=== PATIENT | female | born 1980 | race African-American/Black ===

== ENCOUNTER 2018-08-03 10:54 | Inpatient (IN) | payer OTHER ==
[~2018-08-03] VITALS: Ht 165.1 cm; Wt 123.0 kg
[2018-08-03 13:59] VITALS: Ht 165.1 cm; Wt 123.0 kg
[2018-08-03] MEDS ORDERED: CARV12.579 PO (13:59)
[2018-08-03] MEDS ORDERED: CETI5SOL PO (13:59)
[2018-08-03] MEDS ORDERED: LISI-313 PO (13:59)
[2018-08-03] MEDS ORDERED: UDATA PO (13:59)
[2018-08-03] MEDS ORDERED: CITA20TA11 PO (13:59)
[2018-08-03] MEDS ORDERED: METF500T24 PO (13:59)
[2018-08-03] MEDS ORDERED: INSU100C SQ (13:59)
[2018-08-03] MEDS ORDERED: GLIM2TAB47 PO (13:59)
[2018-08-03] MEDS ORDERED: ATOR10TA65 PO (13:59)
[2018-08-03] MEDS ORDERED: NACL 0.9% 3 ML SYG IV SCH ×2 (15:00)
[2018-08-03] MEDS ORDERED: ONDANSETRON 4 MG INJ IV PRN (15:00)
[2018-08-03] MEDS ORDERED: morphine 2 MG INJ IV PRN (15:00)
[2018-08-03 15:09] VITALS: BP 131/70; PULSE 103; RESP 17
[2018-08-03] MEDS: DEXTROSE 5%-0.45% NACL 1,000 ML IV SCH (15:10)
--- NOTE | 2018-08-03 15:59 | QN ---
Documentation Comment seen and examined PUSHPA GUNTER MD Aug 03, 2018 15:59
[2018-08-03] MEDS ORDERED: DEXTROSE 50% 50 ML SYRINGE IV PRN ×2 (16:30)
[2018-08-03] MEDS ORDERED: hydrOXYzine HCL 25 MG TAB PO PRN (16:30)
[2018-08-03] MEDS ORDERED: GLUCAGON 1 MG INJ IM PRN (16:30)
[2018-08-03] MEDS ORDERED: GLUCOSE GEL 15 GRAM TUBE PO PRN ×2 (16:30)
[2018-08-03] MEDS ORDERED: GLUCOSE GEL 15 GRAM TUBE BUCCAL PRN (16:30)
[2018-08-03] MEDS ORDERED: INSULIN ASPART [NOVOLOG] 3 ML PEN SC SCH (18:00)
--- NOTE | 2018-08-03 18:05 | HP ---
DATE OF ADMISSION: 08/03/2018 REASON FOR ADMISSION: Abdominal pain. HISTORY OF PRESENT ILLNESS: A 38-year-old female with a past medical history of diabetes, hypertensi on, obesity who presented to [facility] on 08/03 secondary to left-sided abdominal pain. Ac cording to the patient, she had been eating some Maltese food. She was having 4 to 5 episodes of elvis rrhea for the last few weeks. Yesterday, she all of a sudden last night noted left upper quadrant pa in which is burning in nature. She came to the emergency room for evaluation. She has some dry heav es, but no vomiting. Denied any fevers and chills. Denied any hematemesis, any melena, any bright r ed blood per rectum. On arrival to ED at the [facility], the patient was afebrile, pulse wa s 109, respirations 18, blood pressure 125/63, saturating 97%. White count was 7.6. LFTs within nor mal limits. Lipase was 37. HCG was negative. UA shows greater than [address] of the abdome n and pelvis was done that showed hepatomegaly with fatty infiltration and mild peripancreatic hazine ss. This can be seen with pancreatitis. EKG showed sinus tachycardia. The patient was given IV flu ids and was transferred due to insurance reasons. PAST MEDICAL HISTORY: 1. Diabetes. 2. Hypertension. 3. Obesity. 4. History of recently treated scabies. ALLERGIES: IBUPROFEN. HOME MEDICATIONS: Taking at home: 1. Trulicity. 2. Cetirizine 10 mg p.o. daily. 3. Atorvastatin 10. 4. Coreg 12.5 b.i.d. 5. Lisinopril. 6. Celexa. 7. Atarax. 8. Glimepiride. 9. Lispro. 10. Metformin 500. SOCIAL HISTORY: Denies any history of smoking, alcohol or any drug use. Works in a retail. FAMILY HISTORY: Noncontributory. REVIEW OF SYSTEMS: The patient complained of generalized itching; however, does not have any lesions . Complains of left upper quadrant pain. Denies she has some dry heaves. Denies any vomiting. She has been having some diarrhea. Denies any hematemesis, any melena, any blood per rectum. Denies an y focal neurological deficit. PHYSICAL EXAMINATION: VITAL SIGNS: Currently, temperature 98.1, pulse 103, respirations 17, blood pressure 131/70. GENERAL: The patient is awake, alert, oriented, morbidly obese. HEENT: Pupils equal, round, react to light. No scleral icterus. NECK: Supple, no JVD. HEART: Regular rate and rhythm, normal S1, S2 heard. No murmur, rub or gallop. LUNGS: Clear to auscultate bilaterally. ABDOMEN: Soft. Bowel sounds present; however, has tenderness present in the left upper quadrant. EXTREMITIES: No clubbing, cyanosis, or edema. DIAGNOSTIC DATA: From outside hospital showed LFTs are within normal limit. White count of 7.6. Li pase 37. Beta hCG was negative. UA showed greater than [address] of the abdomen and pelvis shows hepatomegaly with fatty infiltration, mild peripancreatic haziness that can be seen with pancre atitis. ASSESSMENT: This is a 38-year-old female presenting with: 1. Left upper quadrant pain could be secondary to pancreatitis evident on the CAT scan; however, lip ase is negative. LFTs are negative. The patient also has history of constipation. It could be ques tionable colitis given the history of diarrhea. 2. Diabetes. 3. Hypertension. 4. Obesity. 5. Hyperlipidemia. 6. History of scabies. PLAN: At this period of time, the patient is admitted to med/surg unit. The patient denies any hist ory of alcohol and no history of gallstones. We will keep the patient n.p.o., start on IV fluids, pa in control and medications for itching; and a GI consultation will be requested. We will also check for triglyceride level. Rest of the treatment will depend on the patient's hospitalization course. Dictated By: PUSHPA CONRAD/KRISTINE Conf#: [id number] DID#: [id number] CC: YOVANNY COLE MD;*End*
[2018-08-03 20:10] VITALS: BP 132/74; PULSE 105; RESP 18
[2018-08-03] MEDS: ATORVASTATIN 10 MG TAB PO SCH (20:19)
[2018-08-03] MEDS: DIPHENHYDRAMINE 50 MG INJ IV PRN (20:19)
[2018-08-03] MEDS: INSULIN ASPART [NOVOLOG] 3 ML PEN SC SCH (20:24)
[2018-08-04] MEDS: DEXTROSE 5%-0.45% NACL 1,000 ML IV SCH ×3 (00:52→15:23)
[2018-08-04] MEDS: INSULIN ASPART [NOVOLOG] 3 ML PEN SC SCH ×4 (01:00→13:35)
[2018-08-04] MEDS: DIPHENHYDRAMINE 50 MG INJ IV PRN ×4 (01:36→18:06)
[2018-08-04] MEDS: morphine SULFATE/PF (2 MG/2 ML) SYG IV PRN ×4 (01:49→18:06)
[2018-08-04] MEDS ORDERED: ACCU-CHEK XX SCH (02:00)
[2018-08-04 08:02] VITALS: BP 111/55; PULSE 90; RESP 18
[2018-08-04] MEDS: CITALOPRAM 20 MG TAB PO SCH (08:19)
[2018-08-04] MEDS: LISINOPRIL 5 MG TAB PO SCH (08:19)
--- NOTE | 2018-08-04 10:57 | CONS ---
Date/Time of Note Date/Time of Note DATE: 08/04/18 TIME: 10:52 Assessment/Plan Assessment/Plan Hospital Course 38 yo female with htn, obesity and diabetes presented with RUQ pain and dry heaving 1. Panpancreatic haziness -lipase wnl, pt recently started taking Trulicity which can be cause of mild pancreatitis 2. Intermittent diarrhea -currently no diarrhea -likely due to intermittent use of metformin 3. Fatty liver 4. Hepatomegaly 5. LUQ/mid abdominal pain which moves around stomach and is intermittent and bu rning -could be due to intermittent use of metformin 6. Burning pain in BLE and BUE intermittently -R/O Diabetic neuropathy 7. Diabetes mellitus uncontrolled -HgbA1C 10.1 8. Hypertension 9. Obesity 10. Mild triglycerdemia (151) Plan: Pt GI upset could be due to intermittent use of metformin and mild pancreatitis likely due to Trulicity (Januvia and HCTZ could also cause pancreatitis and pt i s unaware of the medications she takes). Pt needs education on diabetes medication. I educated patient on low fat, low carb lifestyle. I provided some education on metformin. Advised patient she should take daily, starting with 500 mg qd for 3-4 weeks until GI upset begins to resolve, then take add another 500mg to dose and again adjust slowly until GI upset subsides until metformin dose goal reached. Advised patient she should take metformin with food. Pt believes she should only take metformin when her blood sugars are high (and experiences abd pain, nausea and diarrhea when she does this). Her burning pain could be due to diabetic neuropathy since patient's diabetes is not controlled well. We will monitor patient, her LFTs, amylase and lipase. Order stool cx to r/o infectious etiology. Recommend endocrinology consult and diabetes education. It is okay to start patient on clear liquid diet and advance as tolerated. Pt examined and plan of care discussed with Dr. Ibarra. Result Diagram: 08/04/1828 08/04/18527 Results 24hrs Laboratory Tests Test 08/03/18 17:38 08/03/18 20:23 08/04/18 01:47 08/04/18 05:28 Bedside Glucose 161 149 205 207 White Blood Count 9.3 Red Blood Count 4.65 Hemoglobin 12.4 Hematocrit 40.0 Mean Corpuscular 86.0 Volume Mean Corpuscular 26.7 L Hemoglobin Mean Corpuscular 31.0 L Hemoglobin Concent Red Cell 12.5 Distribution Width Platelet Count 282 Mean Platelet Volume 11.8 H Immature 0.200 Granulocytes % Neutrophils % 61.0 Lymphocytes % 26.2 Monocytes % 7.7 Eosinophils % 4.7 Basophils % 0.2 Nucleated Red Blood 0.0 Cells % Immature 0.020 Granulocytes # Neutrophils # 5.7 Lymphocytes # 2.4 Monocytes # 0.7 Eosinophils # 0.4 Basophils # 0.0 Nucleated Red Blood 0.0 Cells # Sodium Level 142 Potassium Level 3.8 Chloride Level 103 Carbon Dioxide Level 27 Anion Gap 12 Blood Urea Nitrogen 6 L Creatinine 0.57 Est Glomerular > 60 Filtrat Rate mL/min Glucose Level 217 Hemoglobin A1c 10.1 H Calcium Level 8.6 Phosphorus Level 3.3 Magnesium Level 1.9 Total Bilirubin 0.4 Direct Bilirubin 0.00 Indirect Bilirubin 0.4 Aspartate Amino 14 L Transf (AST/SGOT) Alanine 21 Aminotransferase (AL T/SGPT) Alkaline Phosphatase 88 Total Protein 6.3 Albumin 3.5 Globulin 2.80 Albumin/Globulin 1.25 Ratio Triglycerides Level 151 H Cholesterol Level 156 LDL Cholesterol, 91 Calculated HDL Cholesterol 35 Cholesterol/HDL 4.4 Ratio Lipase 58 Test 08/04/18 09:36 Bedside Glucose 209 Consultation Date/Type/Reason Admit Date/Time Aug 03, 2018 at 13:15 Hx of Present Illness 38 yo female with pmh of diabetes, hypertension, obesity and recently treated scabies, presented to [facility] for left sided abdominal pain. Pt was eating Irish food when she began having LUQ and mid abdominal burning pain which was radiating. She has had this pain in past just not as bad but states the pain moves and is burning in nature. She c/o nausea with dry heaving but no vomiting. Pt takes trulicity and metformin. She has been prescribed metformin for a while now but states she takes it intermittently because it is a large pill and feels she only needs to take it when her blood sugar is high. I explained that metformin could cause GI disturbances including diarrhea, abd pain and nausea and pt states that metformin may be the cause. Denies GI bleeding, melena, hematochezia, hematemesis. She has been having intermittent diarrhea over last few weeks but currently BM are normal. Pt states her pain moves around, currently on rt foot and bottom of foot, it feels like numbness and tingling at times, burning at times. She gets it in her hands as well. She states she has had back pain in past but not currently. At presentation to ER she had a UA which showed glucose greater than 1000 and trace amonts of ASHVIN Esterase. Serum glucose 300. Blood sugars in [facility] have been high 100s and low 200s. Her lipase was 37 (nl) and today is 58, WBC wnl, LFTs wnl. HgbA1C is 10.1.Triglycerides 151. EKG showed sinus tach. CT of abd/pelvis done at [facility] 08/03 shows hepatomegaly with fatty infiltration and mild peripancreatic haziness adjacent ot the tail which could be from pancreatitis. She denies CP, SOB, chills, fevers, dysuria Past Medical History Medications Current Medications Dextrose/Sodium Chloride 1,000 ml @ 100 mls/hr Q10H IV Last administered on 08/03/18at 15:10; Admin Dose 100 MLS/HR; Start 08/03/18 at 14:52 Ondansetron HCl (Zofran Inj) 4 mg Q6H PRN IV NAUSEA AND/OR VOMITING; Start 08/03/18 at 15:00 IV Flush (NS 3 ml) 3 ml PER PROTOCOL IV ; Start 08/03/18 at 15:00 Atorvastatin Calcium (Lipitor) 10 mg QHS PO Last administered on 08/03/18at 20:19; Admin Dose 10 MG; Start 08/03/18 at 21:00 Carvedilol (Coreg) 12.5 mg BID PO Last administered on 08/04/18at 08:19; Admin Dose 12.5 MG; Start 08/03/18 at 21:00 Citalopram Hydrobromide (Celexa) 20 mg DAILY PO Last administered on 08/04/18at 08:19; Admin Dose 20 MG; Start 08/04/18 at 09:00 Hydroxyzine HCl (Atarax) 25 mg Q6H PRN PO ITCHING Last administered on 08/03/18at 17:45; Admin Dose 25 MG; Start 08/03/18 at 16:30 Lisinopril (Zestril) 5 mg DAILY PO Last administered on 08/04/18at 08:19; Admin Dose 5 MG; Start 08/04/18 at 09:00 Miscellaneous Information 1 ea NOTE XX ; Start 08/03/18 at 16:30 Glucose (Glutose) 15 gm Q15M PRN PO DECREASED GLUCOSE; Start 08/03/18 at 16:30 Glucose (Glutose) 22.5 gm Q15M PRN PO DECREASED GLUCOSE; Start 08/03/18 at 16:30 Dextrose (D50w Syringe) 25 ml Q15M PRN IV DECREASED GLUCOSE; Start 08/03/18 at 16:30 Dextrose (D50w Syringe) 50 ml Q15M PRN IV DECREASED GLUCOSE; Start 08/03/18 at 16:30 Glucagon (Glucagen) 1 mg Q15M PRN IM DECREASED GLUCOSE; Start 08/03/18 at 16:30 Glucose (Glutose) 15 gm Q15M PRN BUCCAL DECREASED GLUCOSE; Start 08/03/18 at 16:30 Insulin Aspart (Novolog Insulin Pen) NOVOLOG *MILD* ALGORI... Q4 SC Last administered on 08/04/18at 09:56; Admin Dose 2 UNIT; Start 08/03/18 at 22:00 Diphenhydramine HCl (Benadryl) 25 mg Q4H PRN IV itching Last administered on 08/04/18at 09:51; Admin Dose 25 MG; Start 08/03/18 at 20:30 Morphine Sulfate (morphine SULFATE (PF)) 2 mg Q4H PRN IV SEVERE PAIN LEVEL 7-10 Last administered on 08/04/18at 09:20; Admin Dose 2 MG; Start 08/04/18 at 01:40 Allergies: Coded Allergies: ibuprofen (Verified Allergy, Severe, 08/03/18) abdominal pain, itching Social History Smoking Status: Never smoker Exam/Review of Systems Vital Signs Vitals Vital Signs Date Temp Pulse Resp B/P (MAP) Pulse Ox O2 O2 Flow FiO2 Time Delivery Rate 08/04/18 98.6 90 18 111/55 96 08:02 (73) 08/03/18 Room Air 15:09 Intake and Output 08/03/18 08/03/18 08/04/18 1515:00 23:00 07:00 IntakeIntake Total 200 ml 600 ml BalanceBalance 200 ml 600 ml Exam Constitutional: alert, oriented Psych: no complaints Head: normocephalic Eyes: nl sclera, PERRL ENMT: mucosa pink and moist Respiratory: clear to auscultation Cardiovascular: regular rate and rhythm Gastrointestinal: soft, tender (mild in mid abdomen), other (obese, pos bowel sounds) Musculoskeletal: nl gait and stance Extremities: normal pulses Neurological: nl mental status, nl speech Medications Medications Current Medications Dextrose/Sodium Chloride 1,000 ml @ 100 mls/hr Q10H IV Last administered on 08/03/18at 15:10; Admin Dose 100 MLS/HR; Start 08/03/18 at 14:52 Ondansetron HCl (Zofran Inj) 4 mg Q6H PRN IV NAUSEA AND/OR VOMITING; Start 08/03/18 at 15:00 IV Flush (NS 3 ml) 3 ml PER PROTOCOL IV ; Start 08/03/18 at 15:00 Atorvastatin Calcium (Lipitor) 10 mg QHS PO Last administered on 08/03/18at 20:1 9; Admin Dose 10 MG; Start 08/03/18 at 21:00 Carvedilol (Coreg) 12.5 mg BID PO Last administered on 08/04/18at 08:19; Admin Dose 12.5 MG; Start 08/03/18 at 21:00 Citalopram Hydrobromide (Celexa) 20 mg DAILY PO Last administered on 08/04/18at 08:19; Admin Dose 20 MG; Start 08/04/18 at 09:00 Hydroxyzine HCl (Atarax) 25 mg Q6H PRN PO ITCHING Last administered on 08/03/18at 17:45; Admin Dose 25 MG; Start 08/03/18 at 16:30 Lisinopril (Zestril) 5 mg DAILY PO Last administered on 08/04/18at 08:19; Admin Dose 5 MG; Start 08/04/18 at 09:00 Miscellaneous Information 1 ea NOTE XX ; Start 08/03/18 at 16:30 Glucose (Glutose) 15 gm Q15M PRN PO DECREASED GLUCOSE; Start 08/03/18 at 16:30 Glucose (Glutose) 22.5 gm Q15M PRN PO DECREASED GLUCOSE; Start 08/03/18 at 16:30 Dextrose (D50w Syringe) 25 ml Q15M PRN IV DECREASED GLUCOSE; Start 08/03/18 at 16:30 Dextrose (D50w Syringe) 50 ml Q15M PRN IV DECREASED GLUCOSE; Start 08/03/18 at 16:30 Glucagon (Glucagen) 1 mg Q15M PRN IM DECREASED GLUCOSE; Start 08/03/18 at 16:30 Glucose (Glutose) 15 gm Q15M PRN BUCCAL DECREASED GLUCOSE; Start 08/03/18 at 16:30 Insulin Aspart (Novolog Insulin Pen) NOVOLOG *MILD* ALGORI... Q4 SC Last administered on 08/04/18 09:56; Admin Dose 2 UNIT; Start 08/03/18 at 22:00 Diphenhydramine HCl (Benadryl) 25 mg Q4H PRN IV itching Last administered on 08/04/18at 09:51; Admin Dose 25 MG; Start 08/03/18 at 20:30 Morphine Sulfate (morphine SULFATE (PF)) 2 mg Q4H PRN IV SEVERE PAIN LEVEL 7-10 Last administered on 08/04/18 09:20; Admin Dose 2 MG; Start 08/04/18 at 01:40 KAT ARNOLD Aug 04, 2018 10:57
--- NOTE | 2018-08-04 13:06 | PN ---
Date/Time of Note Date/Time of Note DATE: 08/04/18 TIME: 13:04 Assessment/Plan VTE Prophylaxis Risk score (from Ns)>0 risk: 1 [place] [facility] [place] contraindicated: low risk/ambulating Pharmacological prophylaxis: NA/contraindicated Pharm contraindication: low risk/ambulating Lines/Catheters [facility]from [facility] Peripheral IV Urinary Cath still in place: No Assessment/Plan Hospital Course 1. Left upper quadrant pain could be secondary to pancreatitis evident on the CAT scan; however, lipase is negative. LFTs are negative. The patient also has history of constipation. It could be questionable colitis given the history of diarrhea. 2. Diabetes. 3. Hypertension. 4. Obesity. 5. Hyperlipidemia. 6. History of scabies. Assessment/Plan - med/surg unit. - clear liquid -c.w decreased IV fluids, -c/w pain control and medications for itching; and a -GI consultation is appreciated -triglyceride level. -DVT prophylaxis GI prophylaxis start protonix Result Diagram: 08/04/1852708/04/18527 Results 24hrs Laboratory Tests Test 08/03/18 17:38 08/03/18 20:23 08/04/18 01:47 08/04/18 05:28 Bedside Glucose 161 149 205 207 White Blood Count 9.3 Red Blood Count 4.65 Hemoglobin 12.4 Hematocrit 40.0 Mean Corpuscular 86.0 Volume Mean Corpuscular 26.7 L Hemoglobin Mean Corpuscular 31.0 L Hemoglobin Concent Red Cell 12.5 Distribution Width Platelet Count 282 Mean Platelet Volume 11.8 H Immature 0.200 Granulocytes % Neutrophils % 61.0 Lymphocytes % 26.2 Monocytes % 7.7 Eosinophils % 4.7 Basophils % 0.2 Nucleated Red Blood 0.0 Cells % Immature 0.020 Granulocytes # Neutrophils # 5.7 Lymphocytes # 2.4 Monocytes # 0.7 Eosinophils # 0.4 Basophils # 0.0 Nucleated Red Blood 0.0 Cells # Sodium Level 142 Potassium Level 3.8 Chloride Level 103 Carbon Dioxide Level 27 Anion Gap 12 Blood Urea Nitrogen 6 L Creatinine 0.57 Est Glomerular > 60 Filtrat Rate mL/min Glucose Level 217 Hemoglobin A1c 10.1 H Calcium Level 8.6 Phosphorus Level 3.3 Magnesium Level 1.9 Total Bilirubin 0.4 Direct Bilirubin 0.00 Indirect Bilirubin 0.4 Aspartate Amino 14 L Transf (AST/SGOT) Alanine 21 Aminotransferase (AL T/SGPT) Alkaline Phosphatase 88 Total Protein 6.3 Albumin 3.5 Globulin 2.80 Albumin/Globulin 1.25 Ratio Triglycerides Level 151 H Cholesterol Level 156 LDL Cholesterol, 91 Calculated HDL Cholesterol 35 Cholesterol/HDL 4.4 Ratio Lipase 58 Test 08/04/18 09:36 Bedside Glucose 209 Subjective 24 Hr Interval Summary Gastrointestinal: pain (decreased) Exam/Review of Systems Vital Signs Vitals Vital Signs Date Temp Pulse Resp B/P (MAP) Pulse Ox O2 O2 Flow FiO2 Time Delivery Rate 08/04/18 98.6 90 18 111/55 96 08:02 (73) 08/03/18 Room Air 15:09 Intake and Output 08/03/18 08/03/18 08/04/18 1515:00 23:00 07:00 IntakeIntake Total 200 ml 600 ml BalanceBalance 200 ml 600 ml Exam Constitutional: alert, oriented Cardiovascular: regular rate and rhythm Gastrointestinal: soft, rebound or guarding; No nl liver, spleen, No non-tender, No ascites, No bowel sounds, No distended, No firm, No hepatomegaly, No mass, No splenomegaly, No surgical scars, No tender, No other Medications Medications Current Medications Dextrose/Sodium Chloride 1,000 ml @ 100 mls/hr Q10H IV Last administered on 08/03/18at 15:10; Admin Dose 100 MLS/HR; Start 08/03/18 at 14:52 Ondansetron HCl (Zofran Inj) 4 mg Q6H PRN IV NAUSEA AND/OR VOMITING; Start 08/03/18 at 15:00 IV Flush (NS 3 ml) 3 ml PER PROTOCOL IV ; Start 08/03/18 at 15:00 Atorvastatin Calcium (Lipitor) 10 mg QHS PO Last administered on 08/03/18at 20:19; Admin Dose 10 MG; Start 08/03/18 at 21:00 Carvedilol (Coreg) 12.5 mg BID PO Last administered on 08/04/18at 08:19; Admin Dose 12.5 MG; Start 08/03/18 at 21:00 Citalopram Hydrobromide (Celexa) 20 mg DAILY PO Last administered on 08/04/18at 08:19; Admin Dose 20 MG; Start 08/04/18 at 09:00 Hydroxyzine HCl (Atarax) 25 mg Q6H PRN PO ITCHING Last administered on at 17:45; Admin Dose 25 MG; Start 08/03/18 at 16:30 Lisinopril (Zestril) 5 mg DAILY PO Last administered on 08/04/18at 08:19; Admin Dose 5 MG; Start 08/04/18 at 09:00 Miscellaneous Information 1 ea NOTE XX ; Start 08/03/18 at 16:30 Glucose (Glutose) 15 gm Q15M PRN PO DECREASED GLUCOSE; Start 08/03/18 at 16:30 Glucose (Glutose) 22.5 gm Q15M PRN PO DECREASED GLUCOSE; Start 08/03/18 at 16:30 Dextrose (D50w Syringe) 25 ml Q15M PRN IV DECREASED GLUCOSE; Start 08/03/18 at 16:30 Dextrose (D50w Syringe) 50 ml Q15M PRN IV DECREASED GLUCOSE; Start 08/03/18 at 16:30 Glucagon (Glucagen) 1 mg Q15M PRN IM DECREASED GLUCOSE; Start 08/03/18 at 16:30 Glucose (Glutose) 15 gm Q15M PRN BUCCAL DECREASED GLUCOSE; Start 08/03/18 at 16:30 Insulin Aspart (Novolog Insulin Pen) NOVOLOG *MILD* ALGORI... Q4 SC Last administered on 08/04/18at 09:56; Admin Dose 2 UNIT; Start 08/03/18 at 22:00 Diphenhydramine HCl (Benadryl) 25 mg Q4H PRN IV itching Last administered on 08/04/18at 09:51; Admin Dose 25 MG; Start 08/03/18 at 20:30 Morphine Sulfate (morphine SULFATE (PF)) 2 mg Q4H PRN IV SEVERE PAIN LEVEL 7-10 Last administered on 08/04/18 09:20; Admin Dose 2 MG; Start 08/04/18 at 01:40 KIMBERLY KING Aug 04, 2018 13:06
[2018-08-04 15:19] VITALS: BP 126/68; PULSE 89; RESP 17
[2018-08-04] MEDS: Insulin NOVOLOG SS MILD Algorithm (SS with meals and bedtime) SC SCH ×2 (17:50→21:06)
[2018-08-04] MEDS ORDERED: INSULIN ASPART [NOVOLOG] 3 ML PEN SC SCH (18:00)
[2018-08-04 19:12] VITALS: BP 131/79; PULSE 98; RESP 18
[2018-08-04] MEDS: ATORVASTATIN 10 MG TAB PO SCH (20:56)
[2018-08-05] MEDS: DIPHENHYDRAMINE 50 MG INJ IV PRN ×4 (00:05→13:04)
[2018-08-05] MEDS: morphine SULFATE/PF (2 MG/2 ML) SYG IV PRN ×4 (00:05→13:05)
[2018-08-05] MEDS ORDERED: ACCUCHECK AT 2AM (Patients on SS coverage) XX SCH (02:00)
[2018-08-05 02:29] VITALS: BP 114/58; PULSE 88; RESP 18
[2018-08-05] MEDS ORDERED: PANTOPRAZOLE 40 MG INJ IV SCH (06:00)
[2018-08-05 08:02] VITALS: BP 130/61; PULSE 98; RESP 19
[2018-08-05] MEDS: Insulin NOVOLOG SS MILD Algorithm (SS with meals and bedtime) SC SCH ×2 (08:28→13:07)
[2018-08-05] MEDS: CITALOPRAM 20 MG TAB PO SCH (08:30)
[2018-08-05] MEDS: LISINOPRIL 5 MG TAB PO SCH (08:30)
--- NOTE | 2018-08-05 13:34 | CONS ---
Date/Time of Note Date/Time of Note DATE: 08/05/18 TIME: 13:33 Assessment/Plan Assessment/Plan Assessment/Plan Hospital Course 38 yo female with htn, obesity and diabetes presented with RUQ pain and dry heaving 1. Panpancreatic haziness -lipase wnl, pt recently started taking Trulicity which can be cause of mild pancreatitis 2. Intermittent diarrhea -currently no diarrhea -likely due to intermittent use of metformin 3. Fatty liver 4. Hepatomegaly 5. LUQ/mid abdominal pain which moves around stomach and is intermittent and burning -could be due to intermittent use of metformin 6. Burning pain in BLE and BUE intermittently -R/O Diabetic neuropathy 7. Diabetes mellitus uncontrolled -HgbA1C 10.1 8. Hypertension 9. Obesity 10. Mild triglycerdemia (151) Plan Continue present care Weight reduction Patient is to bring all her diabetic medication PPI Result Diagram: 08/04/18 0528 08/04/18 0528 Results 24hrs Laboratory Tests Test 08/04/18 17:46 08/04/18 20:54 08/05/18 02:50 08/05/18 05:28 Bedside Glucose 185 253 H 198 Total Bilirubin 0.2 Direct Bilirubin 0.00 Indirect Bilirubin 0.2 Aspartate Amino 17 Transf (AST/SGOT) Alanine 21 Aminotransferase (AL T/SGPT) Alkaline Phosphatase 92 Total Protein 5.9 L Albumin 3.3 Amylase Level 46 Test 08/05/18 08:05 08/05/18 13:03 Bedside Glucose 242 H 207 Consultation Date/Type/Reason Admit Date/Time Aug 03, 2018 at 13:15 Initial Consult Date 24 HR Interval Summary Constitutional: improved Exam/Review of Systems Vital Signs Vitals Vital Signs Date Temp Pulse Resp B/P (MAP) Pulse Ox O2 O2 Flow FiO2 Time Delivery Rate 08/05/18 98.8 98 19 130/61 98 08:02 (84) 08/04/18 Room Air 15:19 Intake and Output 08/04/18 08/04/18 08/05/18 1515:00 23:00 07:00 IntakeIntake Total 1250 ml BalanceBalance 1250 ml Exam Constitutional: alert, oriented, well developed Psych: no complaints, nl mood/affect Head: normocephalic, atraumatic Eyes: nl conjunctiva, EOMI, nl lids, nl sclera, PERRL ENMT: nl external ears & nose, nl lips & teeth, nl nasal mucosa & septum Neck: supple, non-tender Respiratory: clear to auscultation, normal air movement Cardiovascular: regular rate and rhythm, nl pulses Gastrointestinal: soft, nl liver, spleen, non-tender Musculoskeletal: nl extremities to inspection, nl gait and stance Extremities: normal pulses Neurological: PERSONNEL PSYCHOLOGIST II-XII intact, nl mental status, nl speech, nl strength Skin: nl turgor; No rash or lesions Lymph: nl lymph nodes Medications Medications Current Medications Ondansetron HCl (Zofran Inj) 4 mg Q6H PRN IV NAUSEA AND/OR VOMITING; Start 08/03/18 at 15:00 IV Flush (NS 3 ml) 3 ml PER PROTOCOL IV ; Start 08/03/18 at 15:00 Atorvastatin Calcium (Lipitor) 10 mg QHS PO Last administered on 08/04/18at 20:56; Admin Dose 10 MG; Start 08/03/18 at 21:00 Carvedilol (Coreg) 12.5 mg BID PO Last administered on 08/05/18at 08:30; Admin Dose 12.5 MG; Start 08/03/18 at 21:00 Citalopram Hydrobromide (Celexa) 20 mg DAILY PO Last administered on 08/05/18at 08:30; Admin Dose 20 MG; Start 08/04/18 at 09:00 Hydroxyzine HCl (Atarax) 25 mg Q6H PRN PO ITCHING Last administered on 08/03/18at 17:45; Admin Dose 25 MG; Start 08/03/18 at 16:30 Lisinopril (Zestril) 5 mg DAILY PO Last administered on 08/05/18at 08:30; Admin Dose 5 MG; Start 08/04/18 at 09:00 Miscellaneous Information 1 ea NOTE XX ; Start 08/03/18 at 16:30 Glucose (Glutose) 15 gm Q15M PRN PO DECREASED GLUCOSE; Start 08/03/18 at 16:30 Glucose (Glutose) 22.5 gm Q15M PRN PO DECREASED GLUCOSE; Start 08/03/18 at 16:30 Dextrose (D50w Syringe) 25 ml Q15M PRN IV DECREASED GLUCOSE; Start 08/03/18 at 16:30 Dextrose (D50w Syringe) 50 ml Q15M PRN IV DECREASED GLUCOSE; Start 08/03/18 at 16:30 Glucagon (Glucagen) 1 mg Q15M PRN IM DECREASED GLUCOSE; Start 08/03/18 at 16:30 Glucose (Glutose) 15 gm Q15M PRN BUCCAL DECREASED GLUCOSE; Start 08/03/18 at 16:30 Diphenhydramine HCl (Benadryl) 25 mg Q4H PRN IV itching Last administered on 08/05/18 13:04; Admin Dose 25 MG; Start 08/03/18 at 20:30 Morphine Sulfate (morphine SULFATE (PF)) 2 mg Q4H PRN IV SEVERE PAIN LEVEL 7-10 Last administered on 08/05/18 13:05; Admin Dose 2 MG; Start 08/04/18 at 01:40 Pantoprazole (Protonix Iv) 40 mg DAILY@06 IV Last administered on 08/05/18 06:29; Admin Dose 40 MG; Start 08/05/18 at 06:00 Insulin Aspart (Novolog Insulin Pen) (Adult SC Insulin - Mild Algorithm)... WITH MEALS BEDTIME SC Last administered on 08/05/18 13:07; Admin Dose 2 UNIT; Start 08/04/18 at 18:00 Diagnostic Test (Pha) (Accu-Chek) 1 ea 02 XX Last administered on 08/05/18at 02:54; Admin Dose 1 EA; Start 08/05/18 at 02:00 DUSTIN GATES MD Aug 05, 2018 13:34
--- NOTE | 2018-08-05 16:10 | PDOCDIS ---
Discharge Instructions DIAGNOSIS Discharge Diagnosis abdominal pain CONDITION [id number] Patient Condition: [id number] Stable HOME CARE INSTRUCTIONS: [id number] Special Diet: [id number] carb controlled diet ACTIVITY: [id number] Activity Restrictions: [id number] Slowly Increase Activity Rest between Activity FOLLOW UP/APPOINTMENTS Follow-up Plan PCP 1 week, do not use trulicKIMBERLY Justin Aug 05, 2018 16:10
--- NOTE | 2018-08-05 16:11 | DS ---
Date/Time of Note Date/Time of Note DATE: 08/05/18 TIME: 16:10 Discharge Summary Admission/Discharge Info Admit Date/Time Aug 03, 2018 at 13:15 Discharge Date/Time Discharge Diagnosis abdominal pain Patient Condition: Stable Consults Dr Ibarra,GI Hospital Course A 38-year-old female with a past medical history of diabetes, hypertension, obesity who presented to [facility] on 08/03 secondary to left-sided abdominal pain. According to the patient, she had been eating some [place] food. She was having 4 to 5 episodes of diarrhea for the last few weeks. Yesterday, she all of a sudden last night noted left upper quadrant pain which is burning in nature. She came to the emergency room for evaluation. She has some dry heaves, but no vomiting. Denied any fevers and chills. Denied any hematemesis, any melena, any bright red blood per rectum. On arrival to ED at the [facility], the patient was afebrile, pulse was 109, respirations 18, blood pressure 125/63, saturating 97%. White count was 7.6. LFTs within normal limits. Lipase was 37. HCG was negative. UA shows greater than [address] of the abdomen and pelvis was done that showed hepatomegaly with fatty infiltration and mild peripancreatic haziness. This can be seen with pancreatitis. EKG showed sinus tachycardia. The patient was given IV fluids and was transferred due to insurance reasons. PAST MEDICAL HISTORY: 1. Diabetes. 2. Hypertension. 3. Obesity. 4. History of recently treated scabies. Ds:1. Left upper quadrant pain could be secondary to pancreatitis evident on the CAT scan; however, lipase is negative. LFTs are negative. The patient also has history of constipation. It could be questionable colitis given the history of diarrhea. 2. Diabetes. 3. Hypertension. 4. Obesity. 5. Hyperlipidemia. 6. History of scabies. during hosptalization pt was in med/surg unit. she was on clear liquid diet, she tolerated it.She was with IV fluids, She received adequate pain control and medications for itching; and a GI consultation was given by dr Ibarra. appreciated pt triglyceride level was checked. It was normal, pt had adequate DVT prophylaxis and GI prophylaxis was with Protonix. Pt was stable. Home Meds Reported Medications Insulin Lispro (Humalog) 100 Unit/1 Ml Cartridge, 100 UNIT SQ, EA 08/03/18 Atorvastatin Calcium (Atorvastatin Calcium) 10 Mg Tablet, 10 MG PO QHS, #30 TAB 08/03/18 Metformin Hcl* (Metformin Hcl*) 500 Mg Tablet, 500 MG PO WITH BREAKFAST DINNE, #60 TAB 08/03/18 Lisinopril* (Lisinopril*) 5 Mg Tablet, 5 MG PO DAILY, #30 TAB 08/03/18 Citalopram Hydrobromide* (Celexa*) 20 Mg Tablet, 20 MG PO DAILY, #30 TAB 08/03/18 Carvedilol* (Carvedilol*) 12.5 Mg Tablet, 12.5 MG PO BID, #60 TAB 08/03/18 Glimepiride* (Amaryl*) 2 Mg Tablet, 2 MG PO WITH BREAKFAST, TAB 08/03/18 Discontinued Reported Medications Cetirizine Hcl* (Cetirizine Hcl*) 5 Mg/5 Ml Solution, 10 MG PO DAILY, #300 ML 08/03/18 Hydroxyzine Hcl* (Atarax*) 2 Mg/Ml Syrup, 25 MG PO Q6H PRN for ITCHING, ML 08/03/18 Follow-up Plan PCP 1 week, do not use [facility] Primary Care Provider Not On Staff Doctor Time spent on discharge: < 30 minutes Pending Labs Laboratory Tests Test 08/04/18 17:46 08/04/18 20:54 08/05/18 02:50 08/05/18 05:28 Bedside 185 253 198 Glucose mg/dL (70-220) mg/dL (70-220) mg/dL (70-220) Total 0.2 Bilirubin mg/dl (0.2-1.3 ) Direct 0.00 Bilirubin mg/dl (0.00-0. 20) Indirect 0.2 Bilirubin mg/dl (0-1.1) Aspartate Amino 17 Transf (AST/SGO IU/L (15-46) T) Alanine 21 Aminotransferas IU/L (13-69) e (ALT/SGPT) Alkaline 92 Phosphatase IU/L (42-121) Total Protein 5.9 g/dl (6.1-8.1) Albumin 3.3 g/dl (3.3-4.9) Amylase Level 46 U/L (11-123) Test 08/05/18 08:05 08/05/18 13:03 Bedside 242 207 Glucose mg/dL (70-220) mg/dL (70-220) KIMBERLY KNIG Aug 05, 2018 16:10
== END 2018-08-05 16:50 | disposition home or self-care (01) | DRG 391 ==
LOC: 2NE 13:15
PROVIDERS: ADMIT Internal Medicine Nephrology; ATTEND Internal Medicine Nephrology
DX: K52.9 Noninfective gastroenteritis and colitis, unspecified (principal); K85.90 Acute pancreatitis without necrosis or infection, unspecified; Z68.42 Body mass index [BMI] 45.0-49.9, adult; I10 Essential (primary) hypertension; E78.5 Hyperlipidemia, unspecified; K76.0 Fatty (change of) liver, not elsewhere classified; E11.65 Type 2 diabetes mellitus with hyperglycemia; E66.9 Obesity, unspecified; Z79.84 Long term (current) use of oral hypoglycemic drugs
CPT/HCPCS: 80053; 80061; 80076; 82150; 82962; 83036; 83690; 83735; 84100; 85025; C9113; J1200; J1815; J2274; J7042